=== PATIENT | male | born 1980 | race Caucasian/White ===

== ENCOUNTER 2020-04-18 20:17 | Inpatient (IN) | payer MEDICARE, MEDICAID ==
[~2020-04-18] VITALS: Ht 193 cm; Wt 91.7 kg
[~2020-04-18 20:17] MED LIST: CLON0.1T83 PO; DIVA-80 PO; NALT50TA6 PO; QUET200T29 PO
[2020-04-18] MEDS ORDERED: ZOLPIDEM TARTRATE 10 MG TABLET PO PRN (22:00)
[2020-04-18] MEDS ORDERED: LORazepam 2 MG/ML VIAL IM ONE (22:30)
[2020-04-18] MEDS ORDERED: DiphenhydrAMINE HCL 50 MG/ML VIAL IM ONE (22:30)
[2020-04-18] MEDS ORDERED: HALOPERIDOL LACTATE 5 MG/ML VIAL IM ONE (22:30)
[2020-04-18] MEDS ORDERED: LORazepam 2 MG TABLET PO ONE (22:30)
[2020-04-18] MEDS ORDERED: ZIPRASIDONE MESYLATE 20 MG/VIAL IM ONE (22:30)
[2020-04-18 23:56] LABS: COVID AG,FIA SOURCE NASOPHARYNGEAL
[2020-04-19] MEDS: CEPHALEXIN MONOHYDRATE 500 MG CAPSULE PO ONE ×2 (00:36→00:45)
[2020-04-19] MEDS ORDERED: AMOXICILLIN TRIHYDRATE 250 MG CAPSULE PO ONE (00:45)
[2020-04-19] MEDS: OLANZapine 5 MG RAPDIS TABLET PO PRN ×2 (01:47→16:06)
[2020-04-19] MEDS ORDERED: RAPID SEQUENCE KIT [RSI] 1 EACH KIT ONE (02:28)
[2020-04-19] MEDS ORDERED: SUCCINYLCHOLINE CHLORIDE 20 MG/ML 10 ML VIAL ONE (02:28)
[2020-04-19] MEDS: LORazepam 2 MG TABLET PO PRN ×3 (03:16→16:06)
[2020-04-19 03:18] VITALS: BP 147/105
[2020-04-19] MEDS ORDERED: INFLUENZA VIRUS VACCINE QVS 2020-21 (6MO+)/PF 60 MCG/0.5 ML SYRINGE IM ONE (04:15)
[2020-04-19] MEDS ORDERED: CloNIDine HCL 0.1 MG TABLET PO PRN (08:45)
[2020-04-19 18:07] VITALS: BP 126/91
[2020-04-19] MEDS ORDERED: MAGNESIUM HYDROXIDE SUSPENSION 30 ML UDCUP PO PRN (19:30)
[2020-04-19] MEDS ORDERED: LOPERAMIDE HCL 2 MG CAPSULE PO PRN (19:30)
[2020-04-19] MEDS ORDERED: HydrOXYzine PAMOATE 50 MG CAPSULE PO PRN (19:30)
[2020-04-19] MEDS ORDERED: MAG HYDROX/AL HYDROX/SIMETH ES 30 ML SUSPENSION UDCUP PO PRN (19:30)
[2020-04-19] MEDS ORDERED: ACETAMINOPHEN 325 MG TABLET PO PRN (19:30)
[2020-04-19] MEDS ORDERED: PROMETHAZINE HCL 25 MG TABLET PO PRN (19:30)
[2020-04-19] MEDS ORDERED: GuaiFENesin/D-METHORPHAN [SUGAR-FREE] 200-20MG/10 ML SYRUP UDCUP PO PRN (19:30)
[2020-04-19] MEDS: QUEtiapine FUMARATE 200 MG TABLET PO SCH (22:00)
[2020-04-20] MEDS: NALTREXONE HCL 50 MG TABLET PO SCH (08:06)
[2020-04-20] MEDS: LORazepam 2 MG TABLET PO PRN ×2 (08:21→17:51)
[2020-04-20] MEDS: THIAMINE 100 MG TABLET PO SCH ×2 (08:22→17:50)
[2020-04-20] MEDS: DIVALPROEX SODIUM 500 MG ER TABLET PO SCH ×2 (08:23→17:51)
[2020-04-20] MEDS: FOLIC ACID 1 MG TABLET PO SCH (08:23)
[2020-04-20] MEDS: MULTIVITAMINS WITH MINERALS, THERAPEUTIC TABLET PO SCH (08:23)
[2020-04-20] MEDS: OLANZapine 5 MG RAPDIS TABLET PO PRN (08:23)
[2020-04-20 16:30] VITALS: BP 124/79
[2020-04-20] MEDS: SULFAMETHOX/TRIMETH DS 800-160 MG/TABLET PO SCH (17:52)
[2020-04-20] MEDS: QUEtiapine FUMARATE 200 MG TABLET PO SCH (20:56)
[2020-04-21] MEDS: FOLIC ACID 1 MG TABLET PO SCH (08:02)
[2020-04-21] MEDS: NALTREXONE HCL 50 MG TABLET PO SCH (08:02)
[2020-04-21] MEDS: MULTIVITAMINS WITH MINERALS, THERAPEUTIC TABLET PO SCH (08:02)
[2020-04-21] MEDS: THIAMINE 100 MG TABLET PO SCH ×2 (08:02→16:13)
[2020-04-21] MEDS: SULFAMETHOX/TRIMETH DS 800-160 MG/TABLET PO SCH ×2 (08:02→16:12)
[2020-04-21] MEDS: DIVALPROEX SODIUM 500 MG ER TABLET PO SCH ×2 (08:02→16:13)
[2020-04-21] MEDS: LORazepam 2 MG TABLET PO PRN (08:15)
[2020-04-21 08:54] VITALS: BP 122/72
[2020-04-21 16:23] VITALS: BP 136/83
[2020-04-21] MEDS: QUEtiapine FUMARATE 200 MG TABLET PO SCH (20:09)
[2020-04-22 08:00] VITALS: BP 127/93
[2020-04-22] MEDS: MULTIVITAMINS WITH MINERALS, THERAPEUTIC TABLET PO SCH (08:07)
[2020-04-22] MEDS: LORazepam 2 MG TABLET PO PRN (08:07)
[2020-04-22] MEDS: SULFAMETHOX/TRIMETH DS 800-160 MG/TABLET PO SCH ×2 (08:07→15:58)
[2020-04-22] MEDS: THIAMINE 100 MG TABLET PO SCH ×2 (08:07→15:58)
[2020-04-22] MEDS: DIVALPROEX SODIUM 500 MG ER TABLET PO SCH ×2 (08:07→15:58)
[2020-04-22] MEDS: FOLIC ACID 1 MG TABLET PO SCH (08:07)
[2020-04-22] MEDS: OLANZapine 5 MG RAPDIS TABLET PO PRN (08:08)
[2020-04-22] MEDS: NALTREXONE HCL 50 MG TABLET PO SCH (08:35)
[2020-04-22 16:42] VITALS: BP 128/74
[2020-04-22] MEDS: QUEtiapine FUMARATE 200 MG TABLET PO SCH (20:07)
[2020-04-23 08:00] VITALS: BP 118/80
[2020-04-23] MEDS: DIVALPROEX SODIUM 500 MG ER TABLET PO SCH ×2 (08:06→16:18)
[2020-04-23] MEDS: MULTIVITAMINS WITH MINERALS, THERAPEUTIC TABLET PO SCH (08:06)
[2020-04-23] MEDS: FOLIC ACID 1 MG TABLET PO SCH (08:06)
[2020-04-23] MEDS: SULFAMETHOX/TRIMETH DS 800-160 MG/TABLET PO SCH ×2 (08:07→16:18)
[2020-04-23] MEDS: THIAMINE 100 MG TABLET PO SCH ×2 (08:07→16:18)
[2020-04-23] MEDS: LORazepam 2 MG TABLET PO PRN (08:07)
[2020-04-23] MEDS: NALTREXONE HCL 50 MG TABLET PO SCH (08:09)
[2020-04-23 16:15] VITALS: BP 116/65
[2020-04-23] MEDS: QUEtiapine FUMARATE 200 MG TABLET PO SCH (20:14)
[2020-04-24 08:00] VITALS: BP 137/76
[2020-04-24] MEDS: DIVALPROEX SODIUM 500 MG ER TABLET PO SCH ×2 (08:14→16:31)
[2020-04-24] MEDS: THIAMINE 100 MG TABLET PO SCH ×2 (08:14→16:31)
[2020-04-24] MEDS: NALTREXONE HCL 50 MG TABLET PO SCH (08:14)
[2020-04-24] MEDS: MULTIVITAMINS WITH MINERALS, THERAPEUTIC TABLET PO SCH (08:14)
[2020-04-24] MEDS: FOLIC ACID 1 MG TABLET PO SCH (08:14)
[2020-04-24] MEDS: SULFAMETHOX/TRIMETH DS 800-160 MG/TABLET PO SCH ×2 (08:14→16:31)
[2020-04-24 16:04] VITALS: BP 138/77
[2020-04-24] MEDS: QUEtiapine FUMARATE 200 MG TABLET PO SCH (20:15)
[2020-04-25 08:00] VITALS: BP 114/66
[2020-04-25] MEDS: SULFAMETHOX/TRIMETH DS 800-160 MG/TABLET PO SCH (08:19)
[2020-04-25] MEDS: FOLIC ACID 1 MG TABLET PO SCH (08:19)
[2020-04-25] MEDS: DIVALPROEX SODIUM 500 MG ER TABLET PO SCH (08:20)
[2020-04-25] MEDS: THIAMINE 100 MG TABLET PO SCH (08:20)
[2020-04-25] MEDS: NALTREXONE HCL 50 MG TABLET PO SCH (08:20)
[2020-04-25] MEDS: MULTIVITAMINS WITH MINERALS, THERAPEUTIC TABLET PO SCH (08:20)
[2020-04-25] MEDS ORDERED: QUET200T PO (12:38)
[2020-04-25] MEDS ORDERED: BACTDSB PO (12:43)
== END 2020-04-25 14:00 | disposition home or self-care (01) | DRG 885 ==
LOC: EMS 20:17 → 3EC 21:56
PROVIDERS: ADMIT Psychiatry & Neurology Psychiatry; ATTEND Psychiatry & Neurology Psychiatry
DX: F25.9 Schizoaffective disorder, unspecified (principal); G93.49 Other encephalopathy; F31.9 Bipolar disorder, unspecified; I10 Essential (primary) hypertension; J44.9 Chronic obstructive pulmonary disease, unspecified; L03.032 Cellulitis of left toe; Z53.20 Procedure and treatment not carried out because of patient's decision for unspecified reasons; F17.210 Nicotine dependence, cigarettes, uncomplicated; F19.10 Other psychoactive substance abuse, uncomplicated; R00.1 Bradycardia, unspecified; Z20.828 Contact with and (suspected) exposure to other viral communicable diseases; Z28.21 Immunization not carried out because of patient refusal; Z88.5 Allergy status to narcotic agent; Z88.8 Allergy status to other drugs, medicaments and biological substances; Z59.0 Homelessness; Z79.899 Other long term (current) drug therapy
CPT/HCPCS: 87426; 99291; J0330; J1200; J1630; J2060; J3486

== ENCOUNTER 2021-09-12 11:21 | Inpatient (IN) | payer MEDICARE, MEDICAID ==
[~2021-09-12] VITALS: Ht 200.7 cm; Wt 97.5 kg
[~2021-09-12 11:21] MED LIST changes: +BACTDSB PO; -CLON0.1T83 PO; +QUET200T PO; -QUET200T29 PO
[2021-09-12] MEDS ORDERED: QUEtiapine FUMARATE 25 MG TABLET PO PRN (12:00)
[2021-09-12] MEDS ORDERED: ZOLPIDEM TARTRATE 10 MG TABLET PO PRN (12:00)
[2021-09-12 13:23] VITALS: BP 117/69
[2021-09-12] MEDS ORDERED: ALBUTEROL SULFATE HFA 90 MCG/PUFF 8 GM INHALER IH PRN (13:30)
[2021-09-12] MEDS ORDERED: ONDANSETRON HCL 4 MG TABLET PO PRN (13:30)
[2021-09-12] MEDS ORDERED: DOCUSATE SODIUM 100 MG CAPSULE PO PRN (13:30)
[2021-09-12] MEDS ORDERED: GuaiFENesin/D-METHORPHAN [SUGAR-FREE] 200-20MG/10 ML SYRUP UDCUP PO PRN (13:30)
[2021-09-12] MEDS ORDERED: ACETAMINOPHEN 325 MG TABLET PO PRN (13:30)
[2021-09-12] MEDS ORDERED: PETROLATUM,WHITE 28 GM JELLY TP PRN (13:30)
[2021-09-12] MEDS ORDERED: NICOTINE 14 MG/24 HOUR PATCH TD PRN (13:30)
[2021-09-12] MEDS ORDERED: LOPERAMIDE HCL 2 MG CAPSULE PO PRN (13:30)
[2021-09-12] MEDS ORDERED: MAG HYDROX/AL HYDROX/SIMETH ES 30 ML SUSPENSION UDCUP PO PRN (13:30)
[2021-09-12] MEDS ORDERED: CloNIDine HCL 0.1 MG TABLET PO PRN (13:30)
[2021-09-12] MEDS ORDERED: MAGNESIUM HYDROXIDE SUSPENSION 30 ML UDCUP PO PRN (13:30)
[2021-09-13 07:41] LABS: EOSINOPHILS % (AUTO) 5.5 % (1.0-6.0); HEMATOCRIT 43.3 % (41-53); HEMOGLOBIN 15.2 g/dL (13.5-17.5); LYMPHOCYTES # (AUTO) 1.3 K/uL (1.0-4.8); LYMPHOCYTES % (AUTO) 41.8 % (22.0-44.0); MEAN CORPUSCULAR HEMOGLOBIN 31.3 pg (26.0-34.0); MEAN CORPUSCULAR VOLUME 89 fL (80-100); MONOCYTES # (AUTO) 0.4 K/uL (0.1-1.0); MONOCYTES % (AUTO) 12.6 % (2.0-9.0); NEUTROPHILS # (AUTO) 1.2 K/uL (1.8-7.7); NEUTROPHILS % (AUTO) 38.1 % (40.0-70.0); PLATELET COUNT (AUTO) 236 K/uL (150-450); RED BLOOD CELL COUNT(AUTO) 4.85 MIL/uL (4.50-5.90); RED CELL DISTRIBUTION WIDTH 13.8 % (11.5-14.5)
[2021-09-13 08:03] LABS: ALANINE AMINOTRANSFERASE 35 U/L (12-78); ALBUMIN 3.5 g/dL (3.4-5.0); ALKALINE PHOSPHATASE 43 U/L (46-116); ANION GAP 0 mmol/L (8-16); ASPARTATE AMINOTRANSFERASE 21 U/L (15-37); BILIRUBIN,TOTAL 0.8 mg/dL (0.1-1.0); CALCIUM, TOTAL 8.8 mg/dL (8.8-10.5); CARBON DIOXIDE 34 mmol/L (22-29); CHLORIDE 107 mmol/L (98-107); CHOL/HDL RATIO 2.5 (4.2-7.3); CHOLESTEROL 130 mg/dL (131-200); CREATININE 1.26 mg/dL (0.60-1.30); FREE T4 (FREE THYROXINE) 0.92 ng/dL (0.76-1.46); GLOMERULAR FILTR. RATE CALC > 60 mL/min (>60); GLUCOSE,RANDOM 93 mg/dL (70-110); HDL CHOLESTEROL 51 mg/dL (40-60); LDL CHOL (CALC.) 68 mg/dL (0-130); POTASSIUM 4.1 mmol/L (3.5-5.1); SODIUM SERUM 141 mmol/L (136-145); THYROID STIMULATING HORMONE 0.29 uIU/mL (0.36-3.74); TOTAL PROTEIN, SERUM 5.9 g/dL (6.4-8.2); TRIGLYCERIDES 57 mg/dL (15-150); UREA NITROGEN, BLOOD 16 mg/dL (7-18)
[2021-09-13 08:10] VITALS: BP 112/74
[2021-09-13] MEDS: QUEtiapine FUMARATE 100 MG TABLET PO SCH (12:50)
[2021-09-13] MEDS: DIVALPROEX SODIUM 500 MG DR TABLET PO SCH ×2 (12:50→17:17)
[2021-09-13] MEDS: NALTREXONE HCL 50 MG TABLET PO SCH (12:50)
[2021-09-13] MEDS: IBUPROFEN 400 MG TABLET PO PRN (13:01)
[2021-09-13 16:05] VITALS: BP 103/60
[2021-09-13] MEDS: BACITRACIN 28 GM OINTMENT TP SCH (17:17)
[2021-09-13] MEDS: QUEtiapine FUMARATE 200 MG TABLET PO SCH (20:42)
[2021-09-14 00:27] VITALS: BP 106/62
[2021-09-14 08:38] VITALS: BP 106/62
[2021-09-14] MEDS: QUEtiapine FUMARATE 100 MG TABLET PO SCH (08:38)
[2021-09-14] MEDS: NALTREXONE HCL 50 MG TABLET PO SCH (08:38)
[2021-09-14] MEDS: DIVALPROEX SODIUM 500 MG DR TABLET PO SCH ×2 (08:38→16:14)
[2021-09-14] MEDS: BACITRACIN 28 GM OINTMENT TP SCH ×2 (10:07→16:14)
[2021-09-14 16:28] VITALS: BP 114/75
[2021-09-14] MEDS: QUEtiapine FUMARATE 200 MG TABLET PO SCH (21:03)
[2021-09-15 06:46] VITALS: BP 110/68
[2021-09-15 08:11] VITALS: BP 125/66
[2021-09-15] MEDS: DIVALPROEX SODIUM 500 MG DR TABLET PO SCH ×2 (08:43→16:16)
[2021-09-15] MEDS: BACITRACIN 28 GM OINTMENT TP SCH ×2 (08:43→16:16)
[2021-09-15] MEDS: QUEtiapine FUMARATE 100 MG TABLET PO SCH (08:43)
[2021-09-15] MEDS: NALTREXONE HCL 50 MG TABLET PO SCH (08:43)
[2021-09-15 16:59] VITALS: BP 110/69
[2021-09-15] MEDS: QUEtiapine FUMARATE 200 MG TABLET PO SCH (20:11)
[2021-09-16 08:10] VITALS: BP 119/74
[2021-09-16] MEDS: QUEtiapine FUMARATE 100 MG TABLET PO SCH (08:24)
[2021-09-16] MEDS: NALTREXONE HCL 50 MG TABLET PO SCH (08:24)
[2021-09-16] MEDS: DIVALPROEX SODIUM 500 MG DR TABLET PO SCH ×2 (08:24→16:04)
[2021-09-16] MEDS: BACITRACIN 28 GM OINTMENT TP SCH ×2 (08:24→16:04)
[2021-09-16 16:13] VITALS: BP 108/66
[2021-09-16] MEDS: LORazepam 1 MG TABLET PO PRN (17:11)
[2021-09-16] MEDS: QUEtiapine FUMARATE 200 MG TABLET PO SCH (20:10)
[2021-09-17 05:24] VITALS: BP 115/82
[2021-09-17 08:10] VITALS: BP 114/77
[2021-09-17] MEDS: QUEtiapine FUMARATE 100 MG TABLET PO SCH (08:37)
[2021-09-17] MEDS: NALTREXONE HCL 50 MG TABLET PO SCH (08:37)
[2021-09-17] MEDS: DIVALPROEX SODIUM 500 MG DR TABLET PO SCH ×2 (08:37→16:08)
[2021-09-17] MEDS: BACITRACIN 28 GM OINTMENT TP SCH ×2 (08:40→16:08)
[2021-09-17 08:41] LABS: GLUCOMETER DEV NAME(LOC) POC.BV
[2021-09-17 16:20] VITALS: BP 121/64
[2021-09-17] MEDS: MUPIROCIN CALCIUM 2% 22 GM OINTMENT NASAL SCH (17:00)
[2021-09-17] MEDS: QUEtiapine FUMARATE 200 MG TABLET PO SCH (21:34)
[2021-09-18 00:31] VITALS: BP 124/62
[2021-09-18] MEDS: DIVALPROEX SODIUM 500 MG DR TABLET PO SCH ×2 (08:29→17:45)
[2021-09-18] MEDS: MUPIROCIN CALCIUM 2% 22 GM OINTMENT NASAL SCH ×2 (08:29→17:45)
[2021-09-18] MEDS: QUEtiapine FUMARATE 100 MG TABLET PO SCH (08:29)
[2021-09-18] MEDS: LORazepam 1 MG TABLET PO PRN (08:30)
[2021-09-18] MEDS: BACITRACIN 28 GM OINTMENT TP SCH ×2 (08:30→17:46)
[2021-09-18] MEDS: NALTREXONE HCL 50 MG TABLET PO SCH (08:30)
[2021-09-18 08:49] VITALS: BP 116/85
[2021-09-18] MEDS ORDERED: MUPIROCIN CALCIUM 2% 22 GM OINTMENT NASAL SCH (09:00)
[2021-09-18 16:17] VITALS: BP 130/79
[2021-09-18] MEDS: QUEtiapine FUMARATE 200 MG TABLET PO SCH (20:27)
[2021-09-19 05:18] VITALS: BP 121/77
[2021-09-19 08:12] VITALS: BP 134/75
[2021-09-19] MEDS: MUPIROCIN CALCIUM 2% 22 GM OINTMENT NASAL SCH ×2 (09:00→16:09)
[2021-09-19] MEDS: BACITRACIN 28 GM OINTMENT TP SCH ×2 (09:00→16:09)
[2021-09-19] MEDS: LORazepam 1 MG TABLET PO PRN (09:01)
[2021-09-19] MEDS: DIVALPROEX SODIUM 500 MG DR TABLET PO SCH ×2 (09:01→16:09)
[2021-09-19] MEDS: NALTREXONE HCL 50 MG TABLET PO SCH (09:01)
[2021-09-19] MEDS: QUEtiapine FUMARATE 100 MG TABLET PO SCH (09:01)
[2021-09-19 16:23] VITALS: BP 122/84
[2021-09-19] MEDS: QUEtiapine FUMARATE 200 MG TABLET PO SCH (20:02)
[2021-09-20 00:10] VITALS: BP 117/69
[2021-09-20 08:18] VITALS: BP 125/69
[2021-09-20] MEDS: DIVALPROEX SODIUM 500 MG DR TABLET PO SCH ×2 (08:50→17:13)
[2021-09-20] MEDS: MUPIROCIN CALCIUM 2% 22 GM OINTMENT NASAL SCH ×2 (08:50→17:12)
[2021-09-20] MEDS: NALTREXONE HCL 50 MG TABLET PO SCH (08:50)
[2021-09-20] MEDS: QUEtiapine FUMARATE 100 MG TABLET PO SCH (08:50)
[2021-09-20] MEDS: BACITRACIN 28 GM OINTMENT TP SCH ×2 (09:20→17:12)
[2021-09-20 16:11] VITALS: BP 131/69
[2021-09-20] MEDS: QUEtiapine FUMARATE 200 MG TABLET PO SCH (21:09)
[2021-09-21 07:07] VITALS: BP 123/70
[2021-09-21 08:14] VITALS: BP 131/88
[2021-09-21] MEDS: DIVALPROEX SODIUM 500 MG DR TABLET PO SCH ×2 (08:16→16:25)
[2021-09-21] MEDS: BACITRACIN 28 GM OINTMENT TP SCH ×2 (08:16→16:27)
[2021-09-21] MEDS: QUEtiapine FUMARATE 100 MG TABLET PO SCH (08:16)
[2021-09-21] MEDS: MUPIROCIN CALCIUM 2% 22 GM OINTMENT NASAL SCH ×2 (08:16→16:27)
[2021-09-21] MEDS: NALTREXONE HCL 50 MG TABLET PO SCH (08:17)
[2021-09-21 16:13] VITALS: BP 122/76
[2021-09-21] MEDS: QUEtiapine FUMARATE 200 MG TABLET PO SCH (21:05)
[2021-09-22 00:51] VITALS: BP 121/79
[2021-09-22 08:33] VITALS: BP 137/88
[2021-09-22] MEDS: QUEtiapine FUMARATE 100 MG TABLET PO SCH (08:43)
[2021-09-22] MEDS: DIVALPROEX SODIUM 500 MG DR TABLET PO SCH ×2 (08:44→16:35)
[2021-09-22] MEDS: MUPIROCIN CALCIUM 2% 22 GM OINTMENT NASAL SCH ×2 (08:44→16:35)
[2021-09-22] MEDS: NALTREXONE HCL 50 MG TABLET PO SCH (08:44)
[2021-09-22] MEDS: BACITRACIN 28 GM OINTMENT TP SCH ×2 (08:44→16:36)
[2021-09-22 17:42] VITALS: BP 117/83
[2021-09-22] MEDS: QUEtiapine FUMARATE 200 MG TABLET PO SCH (21:50)
[2021-09-23 01:34] VITALS: BP 123/79
[2021-09-23] MEDS: BACITRACIN 28 GM OINTMENT TP SCH (07:38)
[2021-09-23] MEDS: DIVALPROEX SODIUM 500 MG DR TABLET PO SCH ×2 (07:38→16:33)
[2021-09-23] MEDS: QUEtiapine FUMARATE 100 MG TABLET PO SCH (07:38)
[2021-09-23] MEDS: MUPIROCIN CALCIUM 2% 22 GM OINTMENT NASAL SCH ×2 (07:38→16:33)
[2021-09-23] MEDS: NALTREXONE HCL 50 MG TABLET PO SCH (07:38)
[2021-09-23 08:36] VITALS: BP 121/81
[2021-09-23 16:27] VITALS: BP 123/69
[2021-09-23] MEDS: ALPRAZolam 1 MG TABLET PO PRN (16:33)
[2021-09-23] MEDS: QUEtiapine FUMARATE 200 MG TABLET PO SCH (20:49)
[2021-09-24 00:45] VITALS: BP 100/65
[2021-09-24] MEDS: QUEtiapine FUMARATE 100 MG TABLET PO SCH (07:37)
[2021-09-24] MEDS: NALTREXONE HCL 50 MG TABLET PO SCH (07:37)
[2021-09-24] MEDS: DIVALPROEX SODIUM 500 MG DR TABLET PO SCH ×2 (07:38→16:53)
[2021-09-24] MEDS: ALPRAZolam 1 MG TABLET PO PRN ×2 (07:40→18:12)
[2021-09-24 08:12] VITALS: BP 117/81
[2021-09-24 08:50] LABS: GLUCOMETER DEV NAME(LOC) POC.BV
[2021-09-24 16:00] VITALS: BP 111/69
[2021-09-24] MEDS: QUEtiapine FUMARATE 200 MG TABLET PO SCH (20:28)
[2021-09-25 01:05] VITALS: BP 123/76
[2021-09-25] MEDS: IBUPROFEN 400 MG TABLET PO PRN (06:25)
[2021-09-25 06:26] VITALS: BP 115/81
[2021-09-25] MEDS: NALTREXONE HCL 50 MG TABLET PO SCH (08:07)
[2021-09-25] MEDS: QUEtiapine FUMARATE 100 MG TABLET PO SCH (08:07)
[2021-09-25] MEDS: DIVALPROEX SODIUM 500 MG DR TABLET PO SCH ×2 (08:07→16:42)
[2021-09-25 08:17] VITALS: BP 128/73
[2021-09-25] MEDS: ALPRAZolam 1 MG TABLET PO PRN ×2 (10:16→19:50)
[2021-09-25 16:11] VITALS: BP 111/70
[2021-09-25] MEDS: QUEtiapine FUMARATE 200 MG TABLET PO SCH (20:36)
[2021-09-26 00:24] VITALS: BP 120/71
[2021-09-26] MEDS: DIVALPROEX SODIUM 500 MG DR TABLET PO SCH ×2 (08:06→16:44)
[2021-09-26] MEDS: QUEtiapine FUMARATE 100 MG TABLET PO SCH (08:06)
[2021-09-26] MEDS: NALTREXONE HCL 50 MG TABLET PO SCH (08:07)
[2021-09-26] MEDS: ALPRAZolam 1 MG TABLET PO PRN (08:07)
[2021-09-26 08:18] VITALS: BP 111/63
[2021-09-26 17:36] VITALS: BP 107/77
[2021-09-26] MEDS: QUEtiapine FUMARATE 200 MG TABLET PO SCH (20:30)
[2021-09-27 05:51] VITALS: BP 120/68
[2021-09-27 08:17] VITALS: BP 107/79
[2021-09-27] MEDS: NALTREXONE HCL 50 MG TABLET PO SCH (08:49)
[2021-09-27] MEDS: DIVALPROEX SODIUM 500 MG DR TABLET PO SCH ×2 (08:49→16:48)
[2021-09-27] MEDS: QUEtiapine FUMARATE 100 MG TABLET PO SCH (08:49)
[2021-09-27] MEDS ORDERED: ALPRAZolam 1 MG TABLET PO PRN (09:00)
[2021-09-27] MEDS ORDERED: ALPRAZolam 1 MG TABLET PO SCH (09:00)
[2021-09-27] MEDS: IBUPROFEN 400 MG TABLET PO PRN (11:59)
[2021-09-27 16:15] VITALS: BP 123/73
[2021-09-27] MEDS: QUEtiapine FUMARATE 200 MG TABLET PO SCH (21:00)
[2021-09-28 00:33] VITALS: BP 116/66
[2021-09-28] MEDS: QUEtiapine FUMARATE 100 MG TABLET PO SCH (08:00)
[2021-09-28] MEDS: DIVALPROEX SODIUM 500 MG DR TABLET PO SCH ×2 (08:00→16:13)
[2021-09-28] MEDS: NALTREXONE HCL 50 MG TABLET PO SCH (08:00)
[2021-09-28 09:15] VITALS: BP 124/72
[2021-09-28 11:26] LABS: GLUCOMETER DEV NAME(LOC) POC.BV
[2021-09-28 13:37] LABS: GLUCOMETER DEV NAME(LOC) POC.BV
[2021-09-28 16:11] VITALS: BP 110/66
[2021-09-28] MEDS: QUEtiapine FUMARATE 200 MG TABLET PO SCH (21:17)
[2021-09-29 05:41] VITALS: BP 123/73
[2021-09-29] MEDS: QUEtiapine FUMARATE 100 MG TABLET PO SCH (08:28)
[2021-09-29] MEDS: DIVALPROEX SODIUM 500 MG DR TABLET PO SCH ×2 (08:28→16:46)
[2021-09-29] MEDS: NALTREXONE HCL 50 MG TABLET PO SCH (08:28)
[2021-09-29 08:46] VITALS: BP 112/70
[2021-09-29] MEDS ORDERED: QUET200T PO (13:12)
[2021-09-29] MEDS ORDERED: NALT50TA6 PO (13:12)
[2021-09-29] MEDS ORDERED: QUET100T34 PO (13:12)
[2021-09-29] MEDS ORDERED: DIVA-112 PO (13:12)
[2021-09-29 16:10] VITALS: BP 136/84
[2021-09-29] MEDS: QUEtiapine FUMARATE 200 MG TABLET PO SCH (20:35)
[2021-09-30 00:45] VITALS: BP 127/81
[2021-09-30 08:17] VITALS: BP 104/67
[2021-09-30] MEDS: NALTREXONE HCL 50 MG TABLET PO SCH (08:31)
[2021-09-30] MEDS: DIVALPROEX SODIUM 500 MG DR TABLET PO SCH ×2 (08:31→16:25)
[2021-09-30] MEDS: QUEtiapine FUMARATE 100 MG TABLET PO SCH (08:31)
[2021-09-30 16:16] VITALS: BP 112/72
[2021-09-30] MEDS: QUEtiapine FUMARATE 200 MG TABLET PO SCH (20:15)
[2021-10-01 05:57] VITALS: BP 124/64
[2021-10-01 08:28] VITALS: BP 103/72
[2021-10-01] MEDS: DIVALPROEX SODIUM 500 MG DR TABLET PO SCH ×2 (08:48→17:00)
[2021-10-01] MEDS: QUEtiapine FUMARATE 100 MG TABLET PO SCH (08:48)
[2021-10-01] MEDS: NALTREXONE HCL 50 MG TABLET PO SCH (08:48)
[2021-10-01 16:11] VITALS: BP 116/74
[2021-10-01] MEDS: QUEtiapine FUMARATE 200 MG TABLET PO SCH (20:43)
[2021-10-02 07:01] VITALS: BP 129/72
[2021-10-02] MEDS: NALTREXONE HCL 50 MG TABLET PO SCH (09:00)
[2021-10-02 09:38] VITALS: BP 119/67
[2021-10-02] MEDS ORDERED: QUEtiapine FUMARATE 100 MG TABLET PO ONE (10:00)
[2021-10-02] MEDS ORDERED: QUEtiapine FUMARATE 200 MG TABLET PO SCH (21:00)
== END 2021-10-02 19:13 | disposition home or self-care (01) | DRG 885 ==
LOC: B2X 12:03
PROVIDERS: ADMIT Psychiatry & Neurology Child & Adolescent Psychiatry; ATTEND Psychiatry & Neurology Child & Adolescent Psychiatry
DX: F31.5 Bipolar disorder, current episode depressed, severe, with psychotic features (principal); F41.9 Anxiety disorder, unspecified; G47.00 Insomnia, unspecified; F19.10 Other psychoactive substance abuse, uncomplicated; Z20.822 Contact with and (suspected) exposure to COVID-19; F41.0 Panic disorder [episodic paroxysmal anxiety]; Z59.00 Homelessness unspecified; Z79.899 Other long term (current) drug therapy; Z91.19 Patient's noncompliance with other medical treatment and regimen; Z88.5 Allergy status to narcotic agent; Z88.8 Allergy status to other drugs, medicaments and biological substances; Z71.51 Drug abuse counseling and surveillance of drug abuser
CPT/HCPCS: 80053; 80061; 80164; 84439; 84443; 85025; 87081